=== PATIENT | male | born 1990 | race American Indian/Alaskan Native ===

== ENCOUNTER 2018-04-25 09:35 | Emergency (ER) | payer OTHER, SELFPAY ==
[2018-04-25] MEDS ORDERED: PANTOPRAZOLE 40 MG INJ ONE (10:36)
[2018-04-25] MEDS ORDERED: ONDANSETRON 4 MG/2 ML VIAL ONE (10:36)
[2018-04-25 10:52] LABS: Absolute Lymphocytes (CBC) 1.8 K/uL (0.7-4.9); Absolute Monocytes 0.8 K/uL (0.1-1.3); Absolute Neutrophil 3.5 K/uL (1.8-8.0); Basophils % 0.5 % (0-1.3); Eosinophils % 2.3 % (0-4.4); Hematocrit 45.5 % (39.6-49.0); Lymphocytes % 28.7 % (15.3-44.8); MPV 9.4 fL (7.6-11.3); Monocytes % 12.4 % (3.3-12.3); RBC Red Blood Cell Count 4.98 M/uL (4.33-5.43)
[2018-04-25 11:06] LABS: ALT/SGPT 29 U/L (12-78); AST/SGOT 21 U/L (15-37); Albumin 3.9 g/dL (3.4-5.0); Alkaline Phosphatase 90 U/L (45-117); BUN Blood Urea Nitrogen 9 mg/dL (7-18); Bicarbonate 29 mmol/L (21-32); Bilirubin Direct 0.3 mg/dL (0-0.2); Bilirubin Total 1.2 mg/dL (0.2-1.0); Glucose Level 104 mg/dL (74-106); Lipase 62 U/L (73-393); Potassium 3.9 mmol/L (3.5-5.1); Protein, Total 7.1 g/dL (6.4-8.2); Sodium Level 143 mmol/L (136-145)
--- NOTE | 2018-04-25 11:32 | EDPHYS ---
Physician Documentation [facility] Name: Alcon Miner Age: 28 yrs Sex: Male : 1990 Arrival Date: 04/25/2018 Time: 09:38 Bed 13 Private MD: ED Physician Frank Conde HPI: 04/25 10:39 This 28 yrs old Other Male presents to ER via Ambulatory with complaints of Vomiting. jr8 10:39 The patient presents to the emergency department with nausea, vomiting, diarrhea. jr8 Onset: The symptoms/episode began/occurred acutely, this morning. Possible causes: unknown. The symptoms are aggravated by nothing. The symptoms are alleviated by nothing. Associated signs and symptoms: Pertinent positives: GI bleeding. Severity of symptoms: At their worst the symptoms were moderate in the emergency department the symptoms have resolved. The patient has not experienced similar symptoms in the past. The patient has not recently seen a physician. Patient woke up with nausea. Shortly after had a few episodes of vomiting. Last episode had about two tablespoons of bright red blood present in it per family. Feels better now and without any more vomiting episodes. GERD history. No excessive drinking or NSAID use . Historical: - Allergies: 09:58 No Known Allergies; tw2 - Home Meds: 09:58 None [Active]; tw2 - PMHx: 09:58 None; tw2 - PSHx: 09:58 None; tw2 - Immunization history:: Adult Immunizations. - Social history:: Smoking status: . - Ebola Screening: : Patient denies travel to an Ebola-affected area in the 21 days before illness onset. ROS: 10:39 Eyes: Negative for injury, pain, redness, and discharge, ENT: Negative for injury, jr8 pain, and discharge, Neck: Negative for injury, pain, and swelling, Cardiovascular: Negative for chest pain, palpitations, and edema, Respiratory: Negative for shortness of breath, cough, wheezing, and pleuritic chest pain, Back: Negative for injury and pain, MS/Extremity: Negative for injury and deformity, Skin: Negative for injury, rash, and discoloration, Neuro: Negative for headache, weakness, numbness, tingling, and seizure. 10:39 Abdomen/GI: Positive for nausea, vomiting, and diarrhea, hematemesis. Exam: 10:39 Eyes: Pupils equal round and reactive to light, extra-ocular motions intact. Lids and jr8 lashes normal. Conjunctiva and sclera are non-icteric and not injected. Cornea within normal limits. Periorbital areas with no swelling, redness, or edema. ENT: Nares patent. No nasal discharge, no septal abnormalities noted. Tympanic membranes are normal and external auditory canals are clear. Oropharynx with no redness, swelling, or masses, exudates, or evidence of obstruction, uvula midline. Mucous membranes moist. Neck: Trachea midline, no thyromegaly or masses palpated, and no cervical lymphadenopathy. Supple, full range of motion without nuchal rigidity, or vertebral point tenderness. No Meningismus. Cardiovascular: Regular rate and rhythm with a normal S1 and S2. No gallops, murmurs, or rubs. Normal PMI, no JVD. No pulse deficits. Respiratory: Lungs have equal breath sounds bilaterally, clear to auscultation and percussion. No rales, rhonchi or wheezes noted. No increased work of breathing, no retractions or nasal flaring. Abdomen/GI: Soft, non-tender, with normal bowel sounds. No distension or tympany. No guarding or rebound. No evidence of tenderness throughout. Back: No spinal tenderness. No costovertebral tenderness. Full range of motion. Skin: Warm, dry with normal turgor. Normal color with no rashes, no lesions, and no evidence of cellulitis. MS/ Extremity: Pulses equal, no cyanosis. Neurovascular intact. Full, normal range of motion. Neuro: Awake and alert, GCS 15, oriented to person, place, time, and situation. Cranial nerves II-XII grossly intact. Motor strength 5/5 in all extremities. Sensory grossly intact. Cerebellar exam normal. Normal gait. Vital Signs: 09:57 BP 111 / 64; Pulse 67; Resp 17; Temp 97.8(TE); Pulse Ox 100% on R/A; Pain 2/10; tw2 10:40 BP 101 / 51; Pulse 57; Resp 17; Pulse Ox 99% on R/A; tw2 11:32 BP 100 / 55; Pulse 64; Resp 17; Pulse Ox 100% on R/A; tw2 MDM: 09:55 Patient medically screened. jr8 11:30 Data reviewed: vital signs, nurses notes, lab test result(s), and as a result, I will jr8 discharge patient. Data interpreted: Pulse oximetry: on room air is 99 %. Interpretation: normal. Counseling: I had a detailed discussion with the patient and/or guardian regarding: the historical points, exam findings, and any diagnostic results supporting the discharge/admit diagnosis, lab results, the need for outpatient follow up, a lathe setup operator, to return to the emergency department if symptoms worsen or persist or if there are any questions or concerns that arise at home. Response to treatment: the patient's symptoms have resolved after treatment. 04/25 10:17 Order name: Basic Metabolic Panel; Complete Time: :04/25 10:17 Order name: CBC with Diff; Complete Time: 04/25 10:17 Order name: Hepatic Function; Complete Time: 04/25 10:17 Order name: Lipase; Complete Time: :04/25 10:17 Order name: IV Saline Lock; Complete Time: 10:39 04/25 10:17 Order name: Labs collected and sent; Complete Time: 10:39 Administered Medications: 10:35 Drug: Zofran 4 mg Route: IVP; Site: right antecubital; tw2 11:32 Follow up: Response: No adverse reaction; Nausea is decreased tw2 10:39 Drug: ProTONIX 40 mg Route: IVP; Site: right antecubital; tw2 11:32 Follow up: Response: No adverse reaction tw2 Disposition: 04/26 09:13 Co-signature as Attending Physician, Frank Conde MD. Disposition: 04/25/18 11:32 Discharged to Home. Impression: Vomiting, Gastritis, unspecified. - Condition is Stable. - Discharge Instructions: Gastritis, Adult, Nausea and Vomiting, Adult. - Prescriptions for Nexium 20 mg Oral Capsule - take 1 capsule by ORAL route once daily; 20 capsule. Zofran 4 mg Oral Tablet - take 1 tablet by ORAL route every 12 hours As needed; 20 tablet. - Medication Reconciliation Form, Thank You Letter, Antibiotic Education, Prescription Opioid Use, Work release form form. - Follow up: Manuel Shultz MD; When: 2 - 3 days; Reason: Recheck today's complaints, Continuance of care, Re-evaluation by your physician. - Problem is new. - Symptoms have improved. Signatures: Dispatcher [employer] EDMS Ed Maddox PA PA jr8 Phoebe Vance RN RN tw2 Frank Conde MD MD gs Corrections: (The following items were deleted from the chart) 04/25 11:40 11:32 04/25/2018 11:32 Discharged to Home. Impression: Vomiting; Gastritis, tw2 unspecified. Condition is Stable. Forms are Medication Reconciliation Form, Thank You Letter, Antibiotic Education, Prescription Opioid Use. Follow up: Manuel Shultz; When: 2 - 3 days; Reason: Recheck today's complaints, Continuance of care, Re-evaluation by your physician. Problem is new. Symptoms have improved. jr8
--- NOTE | 2018-04-25 11:32 | ER ---
Nurse's Notes [facility] Name: Alcon Miner Age: 28 yrs Sex: Male : 1990 Arrival Date: 04/25/2018 Time: 09:38 Bed 13 Private MD: Diagnosis: Vomiting;Gastritis, unspecified Presentation: 04/25 09:55 Presenting complaint: Patient states: this morning i threw up blood x1. Presenting tw2 complaint: Patient states: denies D/V, denies blood in stools, states vomiting was bright red this morning. Transition of care: patient was not received from another setting of care. Onset of symptoms was April 25, 2018. Risk Assessment: Do you want to hurt yourself or someone else? Patient reports no desire to harm self or others. Initial Sepsis Screen: Does the patient meet any 2 criteria? No. Patient's initial sepsis screen is negative. Does the patient have a suspected source of infection? No. Patient's initial sepsis screen is negative. Care prior to arrival: None. 09:55 Method Of Arrival: Ambulatory tw2 09:55 Acuity: BRANDAN 3 tw2 Historical: - Allergies: 09:58 No Known Allergies; tw2 - Home Meds: 09:58 None [Active]; tw2 - PMHx: 09:58 None; tw2 - PSHx: 09:58 None; tw2 - Immunization history:: Adult Immunizations. - Social history:: Smoking status: . - Ebola Screening: : Patient denies travel to an Ebola-affected area in the 21 days before illness onset. Screenin:58 Abuse screen: Denies threats or abuse. Nutritional screening: No deficits noted. tw2 Tuberculosis screening: No symptoms or risk factors identified. Fall Risk None identified. Assessment: 09:59 General: Appears in no apparent distress. well groomed, Behavior is calm, cooperative, tw2 appropriate for age. Pain: Denies pain. Neuro: Level of Consciousness is awake, alert, obeys commands, Oriented to person, place, time, situation. Cardiovascular: Denies chest pain, shortness of breath, Heart tones S1 S2 Patient's skin is warm and dry. Respiratory: Airway is patent Respiratory effort is even, unlabored, Respiratory pattern is regular, symmetrical, Breath sounds are clear bilaterally. GI: Abdomen is flat, Bowel sounds present X 4 quads. Reports vomited bright red blood one time this morning. : No signs and/or symptoms were reported regarding the genitourinary system. EENT: EENT: No signs and/or symptoms were reported regarding the EENT system. EENT: No signs and/or symptoms were reported regarding the EENT system. Derm: No signs and/or symptoms reported regarding the dermatologic system. Musculoskeletal: Range of motion: intact in all extremities. 10:40 Reassessment: Patient appears in no apparent distress at this time. No changes from tw2 previously documented assessment. Patient and/or family updated on plan of care and expected duration. Pain level reassessed. Patient is alert, oriented x 3, equal unlabored respirations, skin warm/dry/pink. 11:32 Reassessment: Patient appears in no apparent distress at this time. No changes from tw2 previously documented assessment. Patient and/or family updated on plan of care and expected duration. Pain level reassessed. Patient is alert, oriented x 3, equal unlabored respirations, skin warm/dry/pink. Vital Signs: 09:57 BP 111 / 64; Pulse 67; Resp 17; Temp 97.8(TE); Pulse Ox 100% on R/A; Pain 2/10; tw2 10:40 BP 101 / 51; Pulse 57; Resp 17; Pulse Ox 99% on R/A; tw2 11:32 BP 100 / 55; Pulse 64; Resp 17; Pulse Ox 100% on R/A; tw2 ED Course: 09:38 Patient arrived in ED. as 09:50 Bed in low position. Call light in reach. Pulse ox on. NIBP on. tw2 09:52 Phoebe Vance, ABEBA is Primary Nurse. tw2 09:55 Ed Maddox PA is PHCP. jr8 09:55 Frank Conde MD is Attending Physician. jr8 09:57 Triage completed. tw2 09:57 Arm band placed on. tw2 10:30 Inserted saline lock: 20 gauge in right antecubital area, using aseptic technique. tw2 Blood collected. 11:30 Manuel Shultz MD is Referral Physician. jr8 11:39 No provider procedures requiring assistance completed. IV discontinued, intact, tw2 bleeding controlled, No redness/swelling at site. Pressure dressing applied. Administered Medications: 10:35 Drug: Zofran 4 mg Route: IVP; Site: right antecubital; tw2 11:32 Follow up: Response: No adverse reaction; Nausea is decreased tw2 10:39 Drug: ProTONIX 40 mg Route: IVP; Site: right antecubital; tw2 11:32 Follow up: Response: No adverse reaction tw2 Outcome: 11:32 Discharge ordered by MD. ruby 11:39 Discharged to home ambulatory, with significant other. tw2 11:39 Condition: stable 11:39 Discharge instructions given to patient, significant other, Instructed on discharge instructions, follow up and referral plans. medication usage, Demonstrated understanding of instructions, follow-up care, medications, Prescriptions given X 2. 11:40 Patient left the ED. tw2 Signatures: Sheba Ellis Josh, PA PA jr8 Phoebe Vance RN RN tw2
== END 2018-04-25 11:40 | disposition home or self-care (01) ==
LOC: ER 09:35
DX: K29.70 Gastritis, unspecified, without bleeding (principal)
CPT/HCPCS: 36415; 80048; 80076; 83690; 85025; 96374; 96375; 99284; C9113; J2405